=== PATIENT | male | born 1985 | race Caucasian/White ===

== ENCOUNTER 2016-11-02 21:19 | Emergency (ER) | payer BC ==
[2016-11-03] MEDS ORDERED: LIDOCAINE 1%/EPINEPHRINE INJ 20 ML VIAL INJ ONE (01:37)
[2016-11-03] MEDS ORDERED: OXYCODONE-ACETAMINOPHEN 5-325 MG TABLET PO ONE (01:37)
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
[2016-11-03] MEDS ORDERED: LIDOCAINE 1% INJ-PF (10 MG/ML) 30 ML SDV ONE (02:08)
[2016-11-03] MEDS ORDERED: HYDROCODONE/ACETAMINOPHEN 5-325 MG 6 TAB/DSPK PO PRN (02:32)
[2016-11-03 03:03] VITALS: BP 125/74
== END 2016-11-03 03:15 | disposition home or self-care (01) ==
LOC: ER 21:19
PROC: 0HQKXZZ Repair Right Lower Leg Skin, External Approach (ICD-10-PCS; principal; 2016-11-02)
DX: S81.811A Laceration without foreign body, right lower leg, initial encounter (principal); W25.XXXA Contact with sharp glass, initial encounter; F17.200 Nicotine dependence, unspecified, uncomplicated; Z88.0 Allergy status to penicillin
CPT/HCPCS: 99283; 12002; J3490

== ENCOUNTER 2016-12-10 17:48 | Emergency (ER) | payer OTHER, BC ==
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
--- NOTE | 2016-12-10 19:23 | RADIOLOGY REPORT (SQ) ---
EXAM DESCRIPTION: FOOT LEFT COMPLETE COMPLETED DATE/TIME: 12/10/2016 7:11 pm REASON FOR STUDY: crush injury, left 5th MT, toe injury COMPARISON: None. NUMBER OF VIEWS: Three views. TECHNIQUE: AP, lateral and oblique radiographic images acquired of the left foot. LIMITATIONS: None. FINDINGS: MINERALIZATION: Normal. BONES: No acute fracture or dislocation. No worrisome bone lesions. JOINTS: No effusions. SOFT TISSUES: No soft tissue swelling. No foreign body. OTHER: No other significant finding. IMPRESSION: NEGATIVE STUDY OF THE LEFT FOOT. NO RADIOGRAPHIC EVIDENCE OF ACUTE INJURY. TECHNICAL DOCUMENTATION: JOB ID: [id number] [employer]- All Rights Reserved
[2016-12-10] MEDS ORDERED: HYDROCODONE/ACETAMINOPHEN 5-325 MG 6 TAB/DSPK PO PRN (19:37)
[2016-12-10 19:49] VITALS: BP 124/71
== END 2016-12-10 19:54 | disposition home or self-care (01) ==
LOC: ER 17:48
DX: S90.32XA Contusion of left foot, initial encounter (principal); F17.200 Nicotine dependence, unspecified, uncomplicated; X58.XXXA Exposure to other specified factors, initial encounter
CPT/HCPCS: 99283

== ENCOUNTER 2018-06-24 17:34 | Emergency (ER) | payer BC ==
[2018-06-24] MEDS ORDERED: NORMAL SALINE 1000 ML 1,000 ML IV ONE (18:15)
--- NOTE | 2018-06-24 18:28 | ER Document Report ---
ED Medical Screen (RME) - General Chief Complaint: Fever Stated Complaint: FEVER Time Seen by Provider: 06/24/18 18:10 Mode of Arrival: Ambulatory Information source: Patient Notes: Patient is an otherwise healthy 32-year-old male who presents to the emergency department with chief complaint of fever, headache, body aches, chills and bilateral ear pain that all started yesterday. Patient denies any neck pain, nausea, vomiting or diarrhea. Patient reports he did not get a flu shot this year. Patient denies any cough, congestion or urinary symptoms. Exam: Patient alert, oriented, answering all questions appropriately and in no acute distress. Lung sounds are clear to auscultation bilaterally. I have greeted and performed a rapid initial assessment of this patient. A comprehensive ED assessment and evaluation of the patient, analysis of test results and completion of the medical decision making process will be conducted by additional ED providers. Dictation of this chart was performed using voice recognition software; therefore, there may be some unintended grammatical errors. Abdomen is soft and nontender. TRAVEL OUTSIDE OF THE [place] IN LAST 30 DAYS: No - Related Data Allergies/Adverse Reactions: Penicillins Allergy (Verified 12/10/16 19:01) Past Medical History - Social History Frequency of alcohol use: None Drug Abuse: None Pulmonary Medical History: Denies: Hx Asthma, Hx COPD Neurological Medical History: Reports: Hx Migraine Renal/ Medical History: Denies: Hx Peritoneal Dialysis Psychiatric Medical History: Reports: Hx Anxiety, Hx Depression Past Surgical History: Reports: Hx Orthopedic Surgery - bilat knee - Immunizations Hx Diphtheria, Pertussis, Tetanus Vaccination: Yes Physical Exam - Vital signs Vitals: Temp Pulse Resp BP Pulse Ox 98.4 F 101 H 16 131/80 H 98 06/24/18 17:40 06/24/18 17:40 06/24/18 17:40 06/24/18 17:40 06/24/18 17:40 Course - Vital Signs Vital signs: Temp Pulse Resp BP Pulse Ox 100.5 F H 101 H 16 131/80 H 98 06/24/18 18:03 06/24/18 17:40 06/24/18 17:40 06/24/18 17:40 06/24/18 17:40
[2018-06-24 18:55] LABS: ABSOLUTE BASOPHILS # (AUTO) 0.1 10^3/uL (0.0-0.2); ABSOLUTE EOSINOPHILS # (AUTO) 0.1 10^3/uL (0.0-0.6); ABSOLUTE LYMPHOCYTES (AUTO) 2.2 10^3/uL (0.5-4.7); ABSOLUTE MONOCYTES (AUTO) 0.5 10^3/uL (0.1-1.4); ABSOLUTE NEUT (AUTO) 6.4 10^3/uL (1.7-8.2); BASOPHILS % (AUTO) 0.6 % (0-2); EOSINOPHILS % (AUTO) 0.8 % (0-6); HEMOGLOBIN 16.4 g/dL (13.5-17.0); LYMPHOCYTES % (AUTO) 24.1 % (13-45); MEAN CORPUSCULAR HEMOGLOBIN 31.4 pg (27.0-33.4); MEAN CORPUSCULAR HGB CONC 34.9 g/dL (32.0-36.0); MEAN CORPUSCULAR VOLUME 90 fl (80-97); MONOCYTES % (AUTO) 5.6 % (3-13); PLATELET COUNT 217 10^3/uL (150-450); RED BLOOD COUNT 5.22 10^6/uL (4.35-5.55); RED CELL DISTRIBUTION WIDTH 12.6 % (11.5-14.0); SEGMENTED NEUTROPHILS % (AUTO) 68.9 % (42-78); TOTAL CELLS COUNTED % (AUTO) 100 %; WHITE BLOOD COUNT 9.3 10^3/uL (4.0-10.5)
[2018-06-24 19:02] LABS: APPEARANCE,URINE CLEAR; BILIRUBIN,URINE NEGATIVE (NEGATIVE); COLOR,URINE YELLOW; GLUCOSE, URINE NEGATIVE (NEGATIVE); KETONES,URINE NEGATIVE (NEGATIVE); LEUKOCYTE ESTERASE,URINE NEGATIVE (NEGATIVE); NITRITE,URINE NEGATIVE (NEGATIVE); PROTEIN,URINE NEGATIVE (NEGATIVE); URINE SPECIFIC GRAVITY 1.019; UROBILINOGEN,URINE NEGATIVE mg/dL (<2.0)
[2018-06-24 19:13] LABS: A TYPE INFLUENZA AG NEGATIVE (NEGATIVE); B INFLUENZA AG NEGATIVE (NEGATIVE)
[2018-06-24] MEDS ORDERED: IBUPROFEN 600 MG TABLET PO ONE (19:14)
[2018-06-24 19:15] LABS: ALANINE AMINOTRANSFERASE 45 U/L (21-72); ALBUMIN 4.8 g/dL (3.5-5.0); ALKALINE PHOSPHATASE 58 U/L (38-126); ANION GAP 11 (5-19); ASPARTATE AMINO TRANSFERASE 26 U/L (17-59); BILIRUBIN,DIRECT 0.3 mg/dL (0.0-0.4); BILIRUBIN,TOTAL 0.6 mg/dL (0.2-1.3); BLOOD UREA NITROGEN 10 mg/dL (7-20); CALCIUM 9.9 mg/dL (8.4-10.2); CARBON DIOXIDE 25 mmol/L (22-30); CHLORIDE 102 mmol/L (98-107); GLUCOSE 90 mg/dL (75-110); POTASSIUM 4.1 mmol/L (3.6-5.0); SODIUM 137.6 mmol/L (137-145); TOTAL PROTEIN 7.8 g/dL (6.3-8.2)
[2018-06-24 20:27] VITALS: BP 127/76
--- NOTE | 2018-06-24 20:51 | ER Document Report ---
ED General - General Chief Complaint: Fever Stated Complaint: FEVER Time Seen by Provider: 06/24/18 18:10 Mode of Arrival: Ambulatory Notes: Patient is a 32-year-old male without chronic medical problems who presents with 24 hours of fever, body aches, right ear pain and mild throat discomfort. States that his symptoms started gradually, have gotten progressively worse since onset. Regards them as being moderate to severe. Has tried Tylenol and ibuprofen with some improvement. Nothing is been noted to worsen his symptoms. Pain to his right ear is a throbbing, aching, constant pain. No history of similar issues in the past. No known sick contacts. Has not seen his primary care physician regarding today's concerns. He denies any abdominal pain, cough, shortness of breath, chest pain, headache, neck pain or confusion. TRAVEL OUTSIDE OF THE [place] IN LAST 30 DAYS: No - Related Data Allergies/Adverse Reactions: Penicillins Allergy (Verified 12/10/16 19:01) Past Medical History - General Information source: Patient - Social History Smoking Status: Current Every Day Smoker Frequency of alcohol use: None Drug Abuse: None Lives with: Spouse/Significant other Family History: Reviewed & Not Pertinent Patient has suicidal ideation: No Patient has homicidal ideation: No Pulmonary Medical History: Denies: Hx Asthma, Hx COPD Neurological Medical History: Reports: Hx Migraine Renal/ Medical History: Denies: Hx Peritoneal Dialysis Psychiatric Medical History: Reports: Hx Anxiety, Hx Depression Past Surgical History: Reports: Hx Orthopedic Surgery - bilat knee - Immunizations Hx Diphtheria, Pertussis, Tetanus Vaccination: Yes Review of Systems - Review of Systems Notes: Constitutional: Positive for fever. HENT: Negative for sore throat. Positive for right ear pain Eyes: Negative for visual changes. Cardiovascular: Negative for chest pain. Respiratory: Negative for shortness of breath. Gastrointestinal: Negative for abdominal pain, vomiting or diarrhea. Genitourinary: Negative for dysuria. Musculoskeletal: Negative for back pain. Skin: Negative for rash. Neurological: Negative for headaches, weakness or numbness. 10 point ROS negative except as marked above and in HPI. Physical Exam - Vital signs Vitals: Temp Pulse Resp BP Pulse Ox 98.4 F 101 H 16 131/80 H 98 06/24/18 17:40 06/24/18 17:40 06/24/18 17:40 06/24/18 17:40 06/24/18 17:40 Interpretation: Tachycardic Notes: PHYSICAL EXAMINATION: GENERAL: Well-appearing, well-nourished and in no acute distress. HEAD: Atraumatic, normocephalic. EYES: Pupils equal round and reactive to light, extraocular movements intact, sclera anicteric, conjunctiva are normal. ENT: nares patent, oropharynx clear without exudates. Moist mucous membranes. Right TM is bulging with serous effusion, mild erythema but no purulent effusion, left TM clear. Mild palatal petechiae, pharyngeal erythema. NECK: Normal range of motion, supple without lymphadenopathy LUNGS: Breath sounds clear to auscultation bilaterally and equal. No wheezes ra les or rhonchi. HEART: Regular rate and rhythm without murmurs ABDOMEN: Soft, nontender, normoactive bowel sounds. No guarding, no rebound. No masses appreciated. EXTREMITIES: Normal range of motion, no pitting or edema. No cyanosis. NEUROLOGICAL: No focal neurological deficits. Moves all extremities spontaneously and on command. PSYCH: Normal mood, normal affect. SKIN: Warm, Dry, normal turgor, no rashes or lesions noted. Course - Re-evaluation Re-evalutation: 06/24/18 20:49 Patient presents with what appears to be a serous otitis media on the right with associated body aches, fever, sinus pressure. Overall syndrome appears to be very consistent with a viral pathology. Influenza testing negative patient does not have clinical support for this diagnosis. Clinical history and exam is not consistent with an acute bacterial meningitis, encephalitis, pneumonia, there is no evidence of a cellulitis on examination. Patient likewise denies any urinary symptoms. No respiratory symptoms to suggest pneumonia. Urinalysis without any evidence of a pyelonephritis. Patient does not have any focal abdominal tender ness to suggest an acute biliary pathology, acute appendicitis, acute mesenteric ischemia, bowel obstruction, bowel, or any other life-threatening acute intra- abdominal pathology as the etiology of the fever and additional symptoms today. Labs are otherwise unremarkable. Patient is tolerated oral intake without difficulty. Has been given a [id number] prescription for azithromycin. Vitals at time of reassessment are within normal limits. At this time will discharge with return precautions and follow-up recommendations. Verbal discharge instructions given a the bedside and opportunity for questions given. Medication warnings reviewed. Patient is in agreement with this plan and has verbalized understanding of return precautions and the need for primary care follow-up in the next 24-72 hours. - Vital Signs Vital signs: Temp Pulse Resp BP Pulse Ox 100.6 F H 98 18 127/76 H 99 06/24/18 19:00 06/24/18 19:00 06/24/18 20:00 06/24/18 20:00 06/24/18 20:01 - Laboratory Result Diagrams: 06/24/18 18:26 06/24/18 18:26 Discharge - Discharge Clinical Impression: Body aches Right otitis media Qualifiers: Otitis media type: suppurative Chronicity: acute Recurrence: non-recurrent Spontaneous tympanic membrane rupture: without spontaneous rupture Qualified Code(s): H66.001 - Acute suppurative otitis media without spontaneous rupture of ear drum, right ear Fever Qualifiers: Fever type: unspecified Qualified Code(s): R50.9 - Fever, unspecified Condition: Good Disposition: HOME, SELF-CARE Additional Instructions: You were seen today for what appears to be most likely a viral syndrome. Your labs are reassuring. Your exam does reveal some bulging of your right ear with some fluid behind it that appears mostly clear as opposed to pus that would necessarily require antibiotic treatment. However your being given a [id number] prescription for azithromycin. If after 48 hours to continue to have your pain please take the azithromycin as prescribed. Take a Tylenol or ibuprofen per box instructions as needed for fever and body aches. Return to the emergency department immediately if you develop worsening of your symptoms, new symptoms, pass out, have severe abdominal pain, difficulty breathing, di fficulty swallowing or any other symptoms that are worrisome to you. Prescriptions: Azithromycin [Zithromax] 250 mg PO DAILY #6 tablet
== END 2018-06-24 21:18 | disposition home or self-care (01) ==
LOC: ER 17:34
DX: H66.001 Acute suppurative otitis media without spontaneous rupture of ear drum, right ear (principal); R50.9 Fever, unspecified; H92.01 Otalgia, right ear; R09.89 Other specified symptoms and signs involving the circulatory and respiratory systems; J34.89 Other specified disorders of nose and nasal sinuses; F17.200 Nicotine dependence, unspecified, uncomplicated; Z88.0 Allergy status to penicillin
CPT/HCPCS: 99283; 96360; 36415; 87086; 85025; 80053; 81001; 87804; J7030

== ENCOUNTER 2019-05-17 16:42 | Emergency (ER) | payer BC ==
[2019-05-17] MEDS ORDERED: OXYCODONE-ACETAMINOPHEN 5-325 MG TABLET PO ONE (17:15)
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
--- NOTE | 2019-05-17 17:49 | RADIOLOGY REPORT (SQ) ---
EXAM DESCRIPTION: FINGER RIGHT COMPLETED DATE/TIME: 05/17/2019 5:38 pm REASON FOR STUDY: right thumb lac/fracture COMPARISON: None. NUMBER OF VIEWS: Three views right hand and thumb. LIMITATIONS: None. FINDINGS: Extensive injury to the tip of the thumb. There is irregular laceration and tissue loss w ith comminuted fracture along the tuft. OTHER: No other significant finding. IMPRESSION: Opened distal thumb wound. Loss of soft tissue with associated comminuted fracture in t he tuft of the distal phalanx. TECHNICAL DOCUMENTATION: JOB ID: [id number] Reading location - IP/workstation name: [email or web address]
[2019-05-17] MEDS ORDERED: CEFAZOLIN 1 GM/D5W RTU 1 GM/50 ML RTUPB IV ONE (20:17)
[2019-05-17] MEDS ORDERED: BUPIVACAINE HCL 0.5 % INJ/PF 30 ML SDV INJ ONE (20:17)
[2019-05-17] MEDS ORDERED: HYDROMORPHONE HCL INJ/PF 2 MG/ML AMPULE IV ONE (20:18)
[2019-05-17] MEDS ORDERED: LIDOCAINE 1% INJ (10 MG/ML) 10 ML MDV INJ ONE (20:18)
[2019-05-17] MEDS ORDERED: ONDANSETRON HCL INJ/PF 4 MG/2 ML SDV IV ONE (20:18)
--- NOTE | 2019-05-17 20:24 | ER Document Report ---
ED Hand/Wrist Injury - General Chief Complaint: Thumb Injury Stated Complaint: THUMB INJURY Time Seen by Provider: 05/17/19 17:15 Primary Care Provider: PABLITO COOK DO [ACTIVE STAFF] - 05/20/19 Notes: Patient is a 33-year-old male that comes emergency department for chief complaint of laceration to the right thumb tip. He states that he was cutting wood with a router when he accidentally caught his thumb causing laceration. This happened just prior to arrival. Patient is right-handed. Patient is up-to-date on his tetanus within 5 years. Patient is not on blood thinner, is not a diabetic. He denies any injuries otherwise. TRAVEL OUTSIDE OF THE [place] IN LAST 30 DAYS: No - Related Data Allergies/Adverse Reactions: Penicillins Allergy (Verified 12/10/16 19:01) Past Medical History - General Information source: Patient - Social History Smoking Status: Never Smoker Frequency of alcohol use: None Drug Abuse: None Lives with: Family Family History: Reviewed & Not Pertinent Patient has suicidal ideation: No Patient has homicidal ideation: No Pulmonary Medical History: Denies: Hx Asthma, Hx COPD Neurological Medical History: Reports: Hx Migraine Renal/ Medical History: Denies: Hx Peritoneal Dialysis Psychiatric Medical History: Reports: Hx Anxiety, Hx Depression Past Surgical History: Reports: Hx Orthopedic Surgery - bilat knee - Immunizations Hx Diphtheria, Pertussis, Tetanus Vaccination: Yes Review of Systems - Review of Systems Constitutional: No symptoms reported EENT: No symptoms reported Cardiovascular: No symptoms reported Respiratory: No symptoms reported Gastrointestinal: No symptoms reported Genitourinary: No symptoms reported Male Genitourinary: No symptoms reported Musculoskeletal: See HPI Skin: See HPI Hematologic/Lymphatic: No symptoms reported Neurological/Psychological: No symptoms reported Physical Exam - Vital signs Vitals: Temp Pulse Resp BP Pulse Ox 97.9 F 90 14 133/75 H 100 05/17/19 17:07 05/17/19 17:07 05/17/19 17:07 05/17/19 17:07 05/17/19 17:07 - Notes Notes: GENERAL: Alert, interacts well. Appears uncomfortable, holding his right hand HEAD: Normocephalic, atraumatic. EYES: Pupils equal, round, and reactive to light. Extraocular movements intact. ENT: Oral mucosa moist, tongue midline. Oropharynx unremarkable. Airway patent. LUNGS: Clear to auscultation bilaterally, no wheezes, rales, or rhonchi. No respiratory distress. HEART: Regular rate and rhythm. No murmur ABDOMEN: Soft, non-tender. Non-distended. EXTREMITIES: There is a laceration over the dorsal distal end of the right thumb, one half of the nailbed is gone laterally along with half of the nail and nailbed. There is wide tissue loss over the lateral distal aspect dorsally of the thumb as well. There is no obvious bone sticking out. There is still sensation over the distal thumb, and capillary refill is intact. Normal range of motion of the DIP of the thumb. Normal hand, wrist, arm exam. BACK: no cervical, thoracic, lumbar midline tenderness. No saddle anesthesia, normal distal neurovascular exam. Moves all extremities in full range of motion. NEUROLOGICAL: Alert and oriented x3. Normal speech. Cranial nerves II through XII grossly intact. PSYCH: Slightly nervous SKIN: Warm, dry, normal turgor. No rashes or lesions noted. Course - Re-evaluation Re-evalutation: There is a comminuted distal tuft fracture with wide amount of tissue loss noted on x-ray. Patient lost one half of the nail and one half of the nailbed along with one half of the cuticle base. There is a fair amount of tissue avulsed as well. There is no specific open wound to repair clearly. Discussed with patient. We will perform digital block, cleanse and irrigate this thoroughly, patient will be given a dose of Ancef and I will contact orthopedics. I spoke with Dr. Cook, orthopedics on-call. Describe the injury, x-ray, exam. Recommendation is to irrigate thoroughly, applied dressing and splint, placed on Keflex antibiotics because he is allergic to penicillin and cannot take Augmentin (but can take cephalosporins), and be seen in close follow-up in the office. Discussed this with patient. Patient states understanding and agreement. I did irrigate thoroughly, explored, unfortunately there was no repairable tissue in the avulsed tissue was simply clean, dressed with Xeroform and bulky dressing, splinted. Stable time of discharge. - Vital Signs Vital signs: Temp Pulse Resp BP Pulse Ox 98.1 F 76 18 128/65 H 100 05/17/19 23:11 05/17/19 23:11 05/17/19 23:11 05/17/19 23:11 05/17/19 23:11 Procedures - Immobilization left thumb Pre-Proc Neuro Vasc Exam: Normal Immobilizer type: Finger splint (Static) Performed by: Provider Post-Proc Neuro Vasc Exam: Normal Alignment checked and good: Yes Notes: Irrigated thoroughly with normal saline, cleaned with surgical cleanser, explored, dressed with Xeroform, bulky dressing, splint. Discharge - Discharge Clinical Impression: Open fracture of tuft of distal phalanx of finger, Skin avulsion, Nailbed injury Laceration of left thumb Qualifiers: Encounter type: initial encounter Damage to nail status: with damage Foreign body presence: without foreign body Qualified Code(s): S61.112A - Laceration without foreign body of left thumb with damage to nail, initial encounter Condition: Stable Disposition: HOME, SELF-CARE Additional Instructions: You have had tissue avulsion, nail injury, open tuft fracture of the left thumb. I spoke with Dr. Cook is a very Orthopedic/Hand Surgeon. Please call the listed referral on Monday morning for close follow-up and additional management. Leave the splint/Xeroform dressing in place, take the Keflex as prescribed, take the pain medication if needed. Return for any concerning symptoms including severe swelling or pain, spreading redness, fever, or any other concerning symptoms. Prescriptions: Cephalexin Monohydrate [Keflex 500 mg Capsule] 500 mg PO QID #28 capsule Oxycodone HCl/Acetaminophen [Percocet 5-325 mg Tablet] 1 - 2 tab PO TID PRN #12 tablet PRN Reason: Forms: Return to School, Return to Work Referrals: PABLITO COOK DO [ACTIVE STAFF] - 05/20/19
[2019-05-17] MEDS ORDERED: HYDROCODONE/ACETAMINOPHEN 5-325 MG (6 TAB/ER DISP) PO PRN (22:32)
[2019-05-17 23:21] VITALS: BP 128/65
== END 2019-05-17 23:20 | disposition home or self-care (01) ==
LOC: ER 16:42
PROC: 2W3GX1Z Immobilization of Right Thumb using Splint (ICD-10-PCS; principal; 2019-05-17)
DX: S62.521B Displaced fracture of distal phalanx of right thumb, initial encounter for open fracture (principal); W45.8XXA Other foreign body or object entering through skin, initial encounter
CPT/HCPCS: 99283; 96375; 96365; 73140; 29130; J3490; J0690; J1170; J2405